=== PATIENT | male | born 1960 | race Caucasian/White ===

== ENCOUNTER 2016-09-23 10:47 | Emergency (ER) | payer OTHER ==
[~2016-09-23] VITALS: Ht 177.8 cm; Wt 127.0 kg
[~2016-09-23 10:47] MED LIST: FLEXERIL 5MG TAB5 MG PO; MELOXICAM15 MG PO; METFORMIN HCL1000 M1 PO; TRAMADOL50 MG PO
[2016-09-23] MEDS ORDERED: GLIMEPIRIDE1 M1 PO (11:20)
[2016-09-23] MEDS ORDERED: ATORVASTATIN CA10 M1 PO (11:20)
[2016-09-23] MEDS ORDERED: METOPROLOL SUCC25 M1 PO (11:21)
--- NOTE | 2016-09-23 11:37 | ED UPPER/LOWER EXTREMITY COMPL ---
See Addendum History of Present Illness General Chief Complaint: Lower Extremity Problems Stated Complaint: RT KNEE PAIN, REDUCED MOBILITY S/P SURGERY Source: patient Exam Limitations: no limitations Vital Signs & Intake/Output Vital Signs & Intake/Output Vital Signs Date Time Temp Pulse Resp B/P B/P Pulse O2 O2 Flow FiO2 Mean Ox Delivery Rate 09/23 1634 98.5 62 20 99/56 96 Room Air 09/23 1438 100.0 98 22 122/63 96 Room Air ED Intake and Output 09/24 0000 09/23 1200 Intake Total 2000 Output Total Balance 1999 Intake, IV 2000 Patient 280 lb Weight Allergies Coded Allergies: NO KNOWN ALLERGIES (12/25/15) Reconcile Medications Atorvastatin Calcium 10 MG TABLET 1 TAB PO DAILY CHOLESTEROL (Reported) Glimepiride 1 MG TABLET 1 TAB PO DAILY DIABETES (Reported) Metformin HCl 1,000 MG TABLET 1 TAB PO BID DIABETES (Reported) Metoprolol Succinate 25 MG TAB 1 TAB PO DAILY HEART (Reported) Triage Note: PT HAD LAPROSCOPIC SURGERY R KNEE 09/18 WAS ABLE TO WALK , STATES THE PAST 2 DAYS HE HAS BEEN UNABLE TO BARE WEIGHT ON HIS KNEE, TAKING VICODIN WITH NO RELIEF. REFUSES MEDS AT TRIAGE PT NOTED WITH 2 SMALL INCISIONS TO R KNEE, NO REDNESS DRAINAGE NOTED COMPLAINS OF INCREASED SWELLING Triage Nurses Notes Reviewed? yes Onset: Gradual Duration: day(s): (4) Timing: no prior history Severity: moderate Severity Numbers: 8 Pain/Injury Location: Right: Knee. Method of Injury: RECENT SURGERY Modifying Factors: Improves With: immobilization. Worsens With: movement. HPI: Patient is a 56-year-old male with history of diabetes, hypertension, high cholesterol with recent right knee arthroscopic surgery done 5 days ago. Patient reports that he had a meniscal injury that they were fixing. He felt fine on day one postop. On day 2 through 5 of postop he began to feel increased pain, swelling and chills. He called his orthopedic today and they advised him to go to the emergency department for evaluation. Patient was prescribed Vicodin which just makes him fall asleep but has not been helping with the pain. No nausea or vomiting. Pain is achy, throbbing headache in nature. Pain radiates down his right leg. Denies any falls or trauma. Denies any chest pain or shortness of breath. No palpitations. Has not had a follow-up with his orthopedic yet after the surgery. (RAVEN TANG) Past History Travel History Traveled to [place] past 21 day No Medical History Any Pertinent Medical History? 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 No (RAVEN TANG) Review of Systems Review of Systems Constitutional: Reports: chills. Comments Review of systems: See HPI, All other systems negative. Constitutional, no fever or weight loss HEENT: No visual changes no sore throat no congestion Cardiovascular: No chest pain ,palpitation , orthopnea Skin, no jaundice no rashes Respiratory: No dyspnea cough sputum or hemoptysis GI: No nausea no vomiting : No dysuria No hematuria Muscle skeletal: no back pain, no neck pain, Neurologic: No numbness no confusion NO PHAM Psych: No stress anxiety or depression,. Heme/endocrine: No bruising no bleeding no polyuria or polydipsia Immunology: No splenectomy or history of AIDS (RAVEN TANG) Physical Exam Physical Exam General Appearance: well developed/nourished, no apparent distress, alert, awake , comfortable Comments: Well-developed well-nourished person in no acute distress HEENT: Pupils equally round and reactive to light and accommodation. Nose is atraumatic. Pharynx normal. No swelling or edema. Neck: Normal inspection Back: Nontender Cardiovascular: Regular rate and rhythms no murmurs rubs or gallops, normal JVP Respiratory: Chest nontender. No respiratory distress.breath sounds clear to auscultation bilaterally Extremity: Tenderness to palpation over the medial, lateral and anterior aspect of the right patella. Moderate edema noted over this area. 2 surgical incisions noted on the anterior aspect of the right patella with sutures in place. No erythema. Mildly warm to palpation. Pain to palpation over the right calf. Pedal pulses are 2+ bilaterally and warm. Capillary refill is intact enlarged ovaries bilaterally. Neuro: Alert oriented x3, motor sensory normal Skin: See extremity exam otherwise No appreciable rash on exposed skin, skin is warm and dry. Psych: Mood and affect is normal, memory and judgment is normal. (LÁZARO SPAIN,RAVEN) Progress Differential Diagnosis: DVT, fracture, gout, septic arthritis, sprain Plan of Care: Laboratory Tests 09/23/16 1355: Lymphocytes 11, % Normal PMNs 89, Fluid WBC , Fld Total RBCs Counted , Sodium Urate Crystals Microbiology 09/23 1354 BODY FLUID: Body Fluid Culture - RES 09/23 1354 BODY FLUID: Gram Stain - RES PATIENT SEEN AND EXAMINED WITH JUDIT. DOES NOT WANT TO BE TRANSFERRED BY THE STONEWORKER DOES NOT HAVE PRIVELEGES HERE AND WANTS THE PATIENT TRANSFERRED FOR ADMISSION. I DISCUSSED THIS WITH THE PATIENT WHO NOW AGREES TO TRANSFER. (PEGGY TAPIA,YEN) Diagnostic Imaging: Viewed by Me: Radiology Read. Discussed w/RAD: Radiology Read. Radiology Impression: PATIENT: YIN KEMP PRESENT AGE: 56 PATIENT ACCOUNT NO: [id number] : 56 LOCATION: [facility] ORDERING PHYSICIAN: RAVEN SPAIN SERVICE DATE: 09/23/16 EXAM TYPE: RAD - XRY-KNEE COMPLETE RIGHT EXAMINATION: XR KNEE, RIGHT CLINICAL INFORMATION: Pain and swelling status post surgery. COMPARISON: None TECHNIQUE: Four views of the right knee. FINDINGS: There is moderate suprapatellar joint effusion. A superior patellar spurring and a moderate-sized superior and inferior patellar enthesophytes are noted. There is no visible acute fracture, dislocation or subluxation seen. There are no loose bodies seen. There are mild marginal osteophytes along the lateral and patellofemoral compartments. No visible bony erosive changes seen a moderate size anterior tibial tubercle osteophyte is noted. IMPRESSION: Degenerative arthritic changes right knee. No visible acute fracture, dislocation or loose bodies noted. Moderate size osteophyte along the anterior tibial tubercle is noted.. DICTATED BY: CATE TAPIA, BLANE DATE/TIME DICTATED:09/23/161241 MARKETING DATABASE COORDINATOR:KEITH DATE/TIME TRANSCRIBED:09/23/161241 CONFIDENTIAL, DO NOT COPY WITHOUT APPROPRIATE AUTHORIZATION. CXR Impression: PATIENT: YIN KEMP PRESENT AGE: 56 PATIENT ACCOUNT NO: [id number] : 56 LOCATION: [facility] ORDERING PHYSICIAN: RAVEN SPAIN SERVICE DATE: 09/23/16 EXAM TYPE: US - US-DUPLEX VENOUS EXTREM UNI EXAMINATION: US TRIPLEX LOWER EXTREMITY, RIGHT CLINICAL INFORMATION: Right lower extremity pain and swelling following meniscus repair on 09/18/2016. COMPARISON: None TECHNIQUE: Color-flow triplex imaging with spectral analysis and compression Doppler were performed on the lower extremity. FINDINGS: Respiratory variation, normal compression and augmented flow are noted throughout the left lower extremity. The visualized common femoral vein, superficial femoral vein, profunda femoral vein, popliteal vein and midcalf peroneal and posterior tibial venous segments show no evidence of deep venous thrombosis. A small Martinez's cyst measuring 2.2 x 1.5 x 1.5 cm occupies the right popliteal fossa. IMPRESSION: Normal triplex scan without evidence of deep venous thrombosis involving the lower extremity. Small popliteal cyst. Comments: 09/23/2016 2:20:01 PM just spoke with Dr. Bk SINHA [facility], he would like to call back after the fluid culture and cell count return. Patient medicated with IV fluids, IV antibiotics Rocephin 2 g for suspected septic joint. 09/23/2016 4:34:27 PM patient and agree AND WILL be transferred to [facility] emergency Department. DR CHERY WISE and Dr.MARK SINHA I the accepting physicians. Spoke with Dr. Swan and she agrees with plan. (RAVEN TANG) Departure Departure Time of Disposition: 1633 Disposition: OTHER [facility] (ACUTE) Condition: Stable Clinical Impression Primary Impression: Septic arthritis Qualifiers: Septic arthritis location: knee Septic arthritis organism: due to unspecified organism Laterality: right Qualified Code: M00.9 - Pyogenic arthritis, unspecified Referrals: RONNY TAPIA,KEI Soriano (PCP/Family) Departure Forms: Customer Survey General Discharge Information (RAVEN TANG) PA/SOFTWARE TOOLS DEVELOPER Co-Sign Statement Statement: ED Attending supervision documentation- [X] I saw and evaluated the patient. I have also reviewed all the pertinent lab results and diagnostic results. I agree with the findings and the plan of care as documented in the PA's/SOFTWARE TOOLS DEVELOPER's documentation. [X] I have reviewed the ED Record and agree with the PA's/SOFTWARE TOOLS DEVELOPER's documentation. [] Additions or exceptions (if any) to the PAs/SOFTWARE TOOLS DEVELOPER's note and plan are summarized below: [] (PEGGY TAPIA,YEN) Procedures Additional Procedures Additional Procedures: JOINT ASPIRATION: AREA WAS PREPPED WITH bETADINE, ANESTHETIZED WITH 1% LIDOCAINE WITH A 22-GAUGE NEEDLE, APPROXIMATELY 10 Ml OF LIDOCAINE WAS INJECTED INTO THE RIGHT KNEE JOINT AFTER ASPIRATION, CONFIRMING PLACEMENT OF HEMATOMA WITH BLOOD RETURN IN THE SYRINGE.APPROXIMATELY 2 Ml OF THICK, CLOUDY SANGUINOUS FLUID WAS EXPELLED FROM THE JOINT. pATIENT TOLERATED PROCEDURE WELL. cULTURES WERE SENT OFF. Progress: Tolerated procedure well. (RAVEN TANG) Critical Care Note Critical Care Note Critical Care Time: 30-74 min (RAVEN TANG) PLACEMENT OF HEMATOMA WITH BLOOD RETURN IN THE SYRINGE.APPROXIMATELY 2 Ml OF THICK, CLOUDY SANGUINOUS FLUID WAS EXPELLED FROM THE JOINT. pATIENT TOLERATED PROCEDURE WELL. cULTURES WERE SENT OFF. Progress: Tolerated procedure well. Critical Care Note Critical Care Note Critical Care Time: 30-74 min
[2016-09-23 12:35] LABS: ABSOLUTE BASOPHIL COUNT 0 /CUMM (0.0-0.2); ABSOLUTE EOSINOPHIL COUNT 0.1 /CUMM (0.0-0.7); ABSOLUTE GRANULOCYTE CT 10.1 /CUMM (1.4-6.5); ABSOLUTE LYMPH COUNT 1.4 /CUMM (1.2-3.4); BASOPHIL % 0.3 % (0.0-2.0); EOSINOPHIL % 0.7 % (0-5); GRANULOCYTE % 79.7 % (42.2-75.2); HEMATOCRIT 43.9 % (42-52); MEAN CORPUSCULAR HGB 30.3 PG (27.0-31.0); MEAN CORPUSCULAR HGB CONC 34.3 G/DL (33.0-37.0); MEAN CORPUSCULAR VOLUME 88.3 FL (80.0-94.0); MEAN PLATELET VOLUME 7.3 FL (7.4-10.4); PLATELET COUNT 208 /CUMM (130-400); RED BLOOD CELL CT 4.98 /CUMM (4.70-6.10); WHITE BLOOD CELL COUNT 12.6 /CUMM (4.8-10.8)
--- NOTE | 2016-09-23 12:52 | RADIOLOGY REPORT ---
EXAMINATION: XR KNEE, RIGHT CLINICAL INFORMATION: Pain and swelling status post surgery. COMPARISON: None TECHNIQUE: Four views of the right knee. FINDINGS: There is moderate suprapatellar joint effusion. A superior patellar spurring and a moderate-sized superior and inferior patellar enthesophytes are noted. There is no visible acute fracture, dislocation or subluxation seen. There are no loose bodies seen. There are mild marginal osteophytes along the lateral and patellofemoral compartments. No visible bony erosive changes seen a moderate size anterior tibial tubercle osteophyte is noted. IMPRESSION: Degenerative arthritic changes right knee. No visible acute fracture, dislocation or loose bodies noted. Moderate size osteophyte along the anterior tibial tubercle is noted..
--- NOTE | 2016-09-23 13:51 | ULTRASOUND REPORT ---
EXAMINATION: US TRIPLEX LOWER EXTREMITY, RIGHT CLINICAL INFORMATION: Right lower extremity pain and swelling following meniscus repair on 09/18/2016. COMPARISON: None TECHNIQUE: Color-flow triplex imaging with spectral analysis and compression Doppler were performed on the lower extremity. FINDINGS: Respiratory variation, normal compression and augmented flow are noted throughout the left lower extremity. The visualized common femoral vein, superficial femoral vein, profunda femoral vein, popliteal vein and midcalf peroneal and posterior tibial venous segments show no evidence of deep venous thrombosis. A small Martinez's cyst measuring 2.2 x 1.5 x 1.5 cm occupies the right popliteal fossa. IMPRESSION: Normal triplex scan without evidence of deep venous thrombosis involving the lower extremity. Small popliteal cyst.
[2016-09-23 16:34] VITALS: BP 99/56
== END 2016-09-23 16:52 | disposition short-term general hospital (02) ==
LOC: ERH 10:47
PROVIDERS: Physician Assistant
DX: M00.9 Pyogenic arthritis, unspecified (principal); I10 Essential (primary) hypertension
CPT/HCPCS: 87075; 73562-RT; 87040; 96374; 96375; J0131; J0696; J1885